=== PATIENT | female | born 1965 | race Caucasian/White ===

== ENCOUNTER 2016-07-23 10:20 | Emergency (ER) | payer OTHER ==
[~2016-07-23] VITALS: Ht 172.7 cm; Wt 77.3 kg
[~2016-07-23 10:20] MED LIST: CELEXA 20MG20 MG/TAB PO; LORTAB 5/500 501 TAB PO; NO HOME MEDICATIONS
[2016-07-23 11:03] LABS: BASO # 0.1 (0.0-0.2); EOS % 0.2 % (0-4.0); GRAN # 2.7 (1.4-6.5); GRAN % 52.7 % (42.2-75.2); HEMOGLOBIN 14.2 g/dl (12.5-16.0); LYMPH # 1.9 (1.2-3.4); LYMPH % 38.4 % (20.0-51.0); MEAN CELL VOLUME 88 fl (80.0-100.0); MEAN CORPUSCULAR HEMOGLOBIN 30 pg (27.0-31.0); MEAN CORPUSCULAR HGB CONC 34 g/dl (33.0-37.0); MEAN PLATELET VOLUME 10.5 fl (7.4-10.4); MONO # 0.4 (0.1-0.6); MONO % 7.5 % (1.7-9.3); PLATELET COUNT 184 K/mm3 (130-400); RED BLOOD COUNT 4.78 M/mm3 (4.10-5.30); REDCELL DISTRIBUTION WIDTH-CV 12.3 % (11.5-14.5); WHITE BLOOD COUNT 5.1 K/mm3 (4.8-10.8)
[2016-07-23] MEDS ORDERED: WELLBUTRIN XL300 M1 PO (11:04)
[2016-07-23] MEDS ORDERED: ESTRACE 1MG1 MG/TAB PO (11:04)
[2016-07-23 11:11] LABS: ADJUSTED CALCIUM 9.8 mg/dL (8.4-10.2); ALANINE AMINOTRANSFERASE 28 U/L (9-52); ALBUMIN 4.6 gm/dL (3.5-5.0); ALKALINE PHOSPHATASE 64 U/L (50-136); ANION GAP 11 mmol/L (7-16); BILIRUBIN,TOTAL 0.9 mg/dL (0.0-1.0); BLOOD UREA NITROGEN 13 mg/dL (7-17); CALCIUM 10.3 mg/dL (8.4-10.2); CARBON DIOXIDE 31 mmol/L (22-30); CHLORIDE 98 mmol/L (98-107); CREATININE, serum 0.85 mg/dL (0.52-1.25); GLUCOSE 89 mg/dL (74-106); LIPASE 87 U/L (23-300); SODIUM 140 mmol/L (137-145); TOTAL PROTEIN 7.3 gm/dL (6.4-8.2)
[2016-07-23 11:23] LABS: B-TYPE NATRIURETIC PEPTIDE 50 pg/mL (0-125); TROPONIN-I < 0.012 ng/mL (0.000-0.034)
[2016-07-23] MEDS ORDERED: PROTONIX 40MG T40 MG PO (13:14)
[2016-07-23 13:32] VITALS: BP 136/81; PULSE 48
== END 2016-07-23 13:36 | disposition home or self-care (01) ==
LOC: COL.ER 10:20
PROVIDERS: Emergency Medicine
DX: R07.9 Chest pain, unspecified (principal)

== ENCOUNTER → 2017-03-29 | Outpatient (CLI) | payer BC ==
[~2017-03-29] MED LIST changes: +ESTRACE 1MG1 MG/TAB PO; +PROTONIX 40MG T40 MG PO; +WELLBUTRIN XL300 M1 PO
== END ==
LOC: MC.RAD 16:11
DX: Z12.31 Encounter for screening mammogram for malignant neoplasm of breast (principal)

== ENCOUNTER 2018-06-04 18:22 | Emergency (ER) | payer BC ==
[~2018-06-04] VITALS: Ht 172.7 cm; Wt 77.3 kg
[2018-06-04 18:49] VITALS: TEMP 96.7
[2018-06-04 19:24] LABS: BASO % 0.7 % (0.0-2.0); EOS % 0.4 % (0-4.0); GRAN # 2.4 (1.4-6.5); GRAN % 43.2 % (42.2-75.2); HEMATOCRIT 43.9 % (37.0-47.0); LYMPH # 2.7 (1.2-3.4); MEAN CELL VOLUME 84 fl (80.0-100.0); MEAN CORPUSCULAR HEMOGLOBIN 29 pg (27.0-31.0); MEAN CORPUSCULAR HGB CONC 34 g/dl (33.0-37.0); MEAN PLATELET VOLUME 10.4 fl (7.4-10.4); MONO # 0.4 (0.1-0.6); MONO % 7.5 % (1.7-9.3); PLATELET COUNT 204 K/mm3 (130-400); RED BLOOD COUNT 5.22 M/mm3 (4.10-5.30); REDCELL DISTRIBUTION WIDTH-CV 12.1 % (11.5-14.5)
[2018-06-04 19:35] LABS: ALANINE AMINOTRANSFERASE 18 U/L (9-52); ALBUMIN 4.4 gm/dL (3.5-5.0); ALKALINE PHOSPHATASE 85 U/L (50-136); ANION GAP 10 mmol/L (7-16); AST,SGOT 20 U/L (15-37); BILIRUBIN,TOTAL 0.4 mg/dL (0.0-1.0); BLOOD UREA NITROGEN 12 mg/dL (7-17); CARBON DIOXIDE 27 mmol/L (22-30); CHLORIDE 102 mmol/L (98-107); CREATININE, serum 0.71 mg/dL (0.52-1.25); GLUCOSE 104 mg/dL (74-106); POTASSIUM 3.2 mmol/L (3.4-5.0); SODIUM 139 mmol/L (137-145); TOTAL PROTEIN 7.5 gm/dL (6.4-8.2)
[2018-06-04 19:36] LABS: C-REACTIVE PROTEIN < 0.5 mg/dL (0.0-0.9)
[2018-06-04 19:43] LABS: ERYTHROCYTE SEDIMENTATION RATE 1 mm/hr (0-30)
[2018-06-04] MEDS ORDERED: OMNICEF 300MG300 MG PO (20:47)
[2018-06-04 20:55] VITALS: BP 152/87; PULSE 65
== END 2018-06-04 21:05 | disposition home or self-care (01) ==
LOC: COL.ER 18:22
PROVIDERS: Emergency Medicine
DX: J32.2 Chronic ethmoidal sinusitis (principal); G43.909 Migraine, unspecified, not intractable, without status migrainosus
CPT/HCPCS: J1885; J2405; J3010; J7030

== ENCOUNTER 2018-06-08 11:11 | Emergency (ER) | payer BC ==
[~2018-06-08] VITALS: Ht 172.7 cm; Wt 77.3 kg
[~2018-06-08 11:11] MED LIST changes: +OMNICEF 300MG300 MG PO
[2018-06-08 11:24] VITALS: TEMP 98.8
[2018-06-08 15:05] LABS: BASO % 0.5 % (0.0-2.0); EOS % 0.3 % (0-4.0); GRAN # 4.6 (1.4-6.5); GRAN % 70.5 % (42.2-75.2); HEMATOCRIT 41.7 % (37.0-47.0); HEMOGLOBIN 14.1 g/dl (12.5-16.0); LYMPH # 1.5 (1.2-3.4); LYMPH % 22.2 % (20.0-51.0); MEAN CELL VOLUME 85 fl (80.0-100.0); MEAN CORPUSCULAR HEMOGLOBIN 29 pg (27.0-31.0); MEAN CORPUSCULAR HGB CONC 34 g/dl (33.0-37.0); MEAN PLATELET VOLUME 10.7 fl (7.4-10.4); MONO # 0.4 (0.1-0.6); MONO % 6.3 % (1.7-9.3); PLATELET COUNT 199 K/mm3 (130-400); RED BLOOD COUNT 4.92 M/mm3 (4.10-5.30)
[2018-06-08 15:13] LABS: ALANINE AMINOTRANSFERASE 19 U/L (9-52); ALKALINE PHOSPHATASE 65 U/L (50-136); ANION GAP 7 mmol/L (7-16); AST,SGOT 25 U/L (15-37); BILIRUBIN,TOTAL 0.4 mg/dL (0.0-1.0); BLOOD UREA NITROGEN 14 mg/dL (7-17); CALCIUM 9.4 mg/dL (8.4-10.2); CARBON DIOXIDE 27 mmol/L (22-30); CHLORIDE 103 mmol/L (98-107); CREATININE, serum 0.64 mg/dL (0.52-1.25); GLUCOSE 111 mg/dL (74-106); POTASSIUM 3.6 mmol/L (3.4-5.0); SODIUM 137 mmol/L (137-145); TOTAL PROTEIN 6.7 gm/dL (6.4-8.2)
[2018-06-08 15:14] LABS: C-REACTIVE PROTEIN < 0.5 mg/dL (0.0-0.9)
[2018-06-08 15:53] VITALS: BP 166/92; PULSE 67
[2018-06-08] MEDS ORDERED: MEDROL 4MG DOSPA4 MG PO (16:10)
[2018-06-08] MEDS ORDERED: FIORICET 325 MG1 TA1 PO (16:10)
== END 2018-06-08 17:18 | disposition home or self-care (01) ==
LOC: COL.ER 11:11
PROVIDERS: Emergency Medicine
DX: J32.0 Chronic maxillary sinusitis (principal); M27.40 Unspecified cyst of jaw; G43.909 Migraine, unspecified, not intractable, without status migrainosus
CPT/HCPCS: J1170; J1200; J1885; J2765; J2930; J7030; Q9967

== ENCOUNTER → 2020-11-17 | Outpatient (CLI) | payer BC ==
[~2020-11-17] MED LIST changes: +FIORICET 325 MG1 TA1 PO; +MEDROL 4MG DOSPA4 MG PO
== END ==
LOC: MC.RAD 10-21 07:45
DX: Z12.31 Encounter for screening mammogram for malignant neoplasm of breast (principal)